=== PATIENT | male | born 1985 | race Hispanic/Latino ===

== ENCOUNTER 2019-11-17 10:11 | Emergency (ER) | payer OTHER ==
[~2019-11-17] VITALS: Ht 185.4 cm; Wt 102.3 kg
[~2019-11-17 10:11] MED LIST: DOXY-350 PO; ESZO1TAB6 PO; HYDR100C PO; INDO-16 PO; LEXA1TAB2 PO; OMEP1CAP73 PO; ONDA4TAB6 PO; VITA200028 PO
[2019-11-17] MEDS ORDERED: NS 500 ML IV ONE (10:30)
[2019-11-17] MEDS ORDERED: ONDANSETRON 4MG/2ML VIAL (J2405) IV ONE (10:45)
[2019-11-17] MEDS ORDERED: KETOROLAC 30 MG/ML VIAL (J1885) IV ONE (10:45)
[2019-11-17 10:52] LABS: BASO % 0.6 % (0.0-1.0); EOS # 0.5 10^3/uL (0.0-0.5); EOS % 7.4 % (0.0-3.0); HEMATOCRIT 42.6 % (42.0-52.0); LYMPH # 1.9 10^3/uL (1.5-5.0); LYMPH % 29.3 % (24.0-44.0); MEAN CORPUSCULAR HEMOGLOBIN 28.1 pg (27.0-33.0); MEAN CORPUSCULAR VOLUME 82.6 fl (80.0-96.0); MONO # 0.5 10^3/uL (0.0-0.8); MONO % 7.7 % (0.0-5.0); NEUTROPHILS # 3.5 10^3/uL (1.5-8.5); NEUTROPHILS % 54.7 % (36.0-66.0); PLATELET COUNT, AUTOMATED 190 10^3/uL (150-450); RED BLOOD COUNT 5.16 10^6/uL (4.30-6.10); WHITE BLOOD COUNT 6.3 10^3/uL (4.0-10.0)
[2019-11-17 11:13] LABS: HEMOGLOBIN 14.5 g/dl (13.5-17.5)
[2019-11-17 11:26] LABS: ALBUMIN 3.9 GM/DL (3.2-5.2); BILIRUBIN,DIRECT 0.2 MG/DL (0.0-0.2); BILIRUBIN,TOTAL 0.7 MG/DL (0.2-1.0); TOTAL PROTEIN 6.8 GM/DL (6.4-8.2)
[2019-11-17] MEDS ORDERED: COLA100C5 PO (13:08)
--- NOTE | 2019-11-17 13:42 | REP ---
KUB ABDOMEN AND PELVIS: Two KUB films of abdomen and pelvis performed. Air is scattered throughout the GI tract in a nonspecific pattern. There is no evidence of significant dilatation of small or large bowel. No abnormal calcifications are seen. The visualized osseous structures are unremarkable. IMPRESSION: Unremarkable KUB. Electronically Signed by You Naylor MD 11/17/2019 05:53 P
[2019-11-17 13:45] VITALS: BP 124/62
[2019-11-17] MEDS ORDERED: MAGNESIUM CITRATE 300 ML BTL PO ONE (14:00)
== END 2019-11-17 14:02 | disposition home or self-care (01) ==
LOC: M ED 10:11 → EDBD 10:11 → M ED 14:02
DX: K59.00 Constipation, unspecified (principal); Z79.899 Other long term (current) drug therapy
CPT/HCPCS: 74018; 80047; 80076; 81001; 83605; 83690; 85025; 93041; 96361; 96374; 96375; 99285; J1885; J2405